=== PATIENT | male | born 1980 | race Caucasian/White ===

== ENCOUNTER 2017-08-13 14:40 | Emergency (ER) | payer MEDICAID ==
[~2017-08-13] VITALS: Ht 170.2 cm; Wt 83.9 kg
[2017-08-13] MEDS ORDERED: RANITIDINE (15:02)
[2017-08-13] MEDS ORDERED: CYMBALTA (15:02)
[2017-08-13] MEDS ORDERED: ACYCLOVIR (15:02)
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
== END 2017-08-13 16:48 | disposition home or self-care (01) ==
LOC: ER 14:41
DX: S00.83XA Contusion of other part of head, initial encounter (principal); K21.9 Gastro-esophageal reflux disease without esophagitis; V43.52XA Car driver injured in collision with other type car in traffic accident, initial encounter; Y92.410 Unspecified street and highway as the place of occurrence of the external cause; Y93.89 Activity, other specified; Y99.8 Other external cause status
CPT/HCPCS: 70450; 71101; 73090; A4663